=== PATIENT | male | born 1960 | race Two or more races ===

== ENCOUNTER 2020-07-07 09:50 | Inpatient (IN) | payer OTHER ==
[~2020-07-07 09:50] MED LIST: CIALIS20 MG PO; TAMS0.4C PO
[2020-07-09] MEDS ORDERED: SURFAK240 M1 PO (08:33)
[2020-07-09] MEDS ORDERED: LEVOFLOXACIN750 MG PO (08:34)
== END 2020-07-09 09:28 | disposition home or self-care (01) | DRG 714 ==
LOC: CIR.AMB 09:50 → O/R 16:16 → SURH 16:16
PROVIDERS: ADMIT Surgery; ATTEND Surgery
PROC: 0VT08ZZ Resection of Prostate, Via Natural or Artificial Opening Endoscopic (ICD-10-PCS; principal; 2020-07-07 10:30)
DX: N40.1 Benign prostatic hyperplasia with lower urinary tract symptoms (principal); N35.811 Other urethral stricture, male, meatal; Z20.822 Contact with and (suspected) exposure to COVID-19; R33.8 Other retention of urine

== ENCOUNTER 2020-07-23 21:56 | Emergency (ER) | payer OTHER ==
[~2020-07-23] VITALS: Ht 165.1 cm; Wt 70.3 kg
[~2020-07-23 21:56] MED LIST changes: +LEVOFLOXACIN750 MG PO; +SURFAK240 M1 PO
[2020-07-24] MEDS ORDERED: CIPRO500 MG PO (03:25)
== END 2020-07-24 04:54 | disposition home or self-care (01) ==
LOC: ER 21:56
DX: R33.8 Other retention of urine (principal); N39.0 Urinary tract infection, site not specified

== ENCOUNTER 2023-02-11 16:38 | Emergency (ER) | payer OTHER ==
[~2023-02-11] VITALS: Ht 165.1 cm; Wt 68.0 kg
[~2023-02-11 16:38] MED LIST changes: +CIPRO500 MG PO
[2023-02-11] MEDS ORDERED: COLACE100 MG (17:04)
[2023-02-11] MEDS ORDERED: PROSCAR5 MG PO (17:05)
[2023-02-11] MEDS ORDERED: DETROL2 MG PO (17:05)
== END 2023-02-11 19:53 | disposition home or self-care (01) ==
LOC: ER 16:38
PROVIDERS: General Practice
DX: K52.9 Noninfective gastroenteritis and colitis, unspecified (principal); N20.0 Calculus of kidney; Z91.013 Allergy to seafood; Z91.041 Radiographic dye allergy status